=== PATIENT | male | born 1985 | race Two or more races ===

== ENCOUNTER 2022-05-22 14:39 | Outpatient (CLI) | payer SELFPAY ==
--- NOTE | 2022-05-22 16:07 | XRAY Report ---
PROCEDURE: Lumbar Spine 2 View INDICATIONS: LUMBAR RADICULOPATHY TECHNIQUE: 2 views of the lumbar spine were acquired. COMPARISON: None. FINDINGS: There are five nonrib-bearing lumbar-type vertebral bodies of normal height and alignment. No suspici ous or acute bone finding. Disc height loss from L3-L4 through L5-S1 with associated mild degenerativ e endplate change and facet hypertrophy. Mild to moderate neural foraminal narrowing at L3-L4, L4-L5, and possibly L5-S1. Impression: Mild to moderate lower lumbar spine degenerative changes. Consider MRI for further workup . Reviewed by: Danny Lizama MD on 05/22/2022 4:06 PM PST Approved by: Danny Lizama MD on 05/22/2022 4:06 PM PST Station ID: [id number]
== END 2022-05-22 14:40 | disposition home or self-care (01) ==
LOC: DI 14:39
PROVIDERS: ATTEND Physician Assistant
DX: M51.16 Intervertebral disc disorders with radiculopathy, lumbar region (principal); M48.061 Spinal stenosis, lumbar region without neurogenic claudication; M47.26 Other spondylosis with radiculopathy, lumbar region; M51.17 Intervertebral disc disorders with radiculopathy, lumbosacral region; M48.07 Spinal stenosis, lumbosacral region